=== PATIENT | female | born 1950 | race Caucasian/White ===

== ENCOUNTER 2017-02-27 06:34 | Observation (INO) | payer MEDICARE, OTHER ==
[~2017-02-27] VITALS: Ht 160 cm; Wt 78.5 kg
[2017-02-27 06:38] VITALS: Ht 160 cm; Wt 78.5 kg
[2017-02-27 09:06] LABS: BASOPHIL # 0.1 10^3/ul (0.0-0.1); BASOPHILS % 0.4 % (0.0-2.0); EOSINOPHILS % 0.3 % (0.0-7.0); HEMATOCRIT 43.3 % (37.0-47.0); HEMOGLOBIN 14.6 g/dl (12.0-16.0); LYMPHOCYTES # 2.6 10^3/ul (0.8-2.9); LYMPHOCYTES % 19.3 % (15.0-51.0); MEAN CORPUSCULAR HEMOGLOBIN 29.4 pg (29.0-33.0); MEAN CORPUSCULAR HGB CONC 33.7 g/dl (32.0-37.0); MEAN CORPUSCULAR VOLUME 87.3 fl (82.0-101.0); MEAN PLATELET VOLUME 10.6 fl (7.4-10.4); MONOCYTE # 0.7 10^3/ul (0.3-0.9); MONOCYTES % 5.1 % (0.0-11.0); NEUTROPHILS % 74.6 % (39.0-77.0); PLATELET COUNT 246 10^3/UL (140-415); RED BLOOD COUNT 4.96 10^6/ul (4.20-5.40); RED CELL DISTRIBUTION WIDTH 13.6 % (11.5-14.5); WHITE BLOOD COUNT 13.6 10^3/ul (4.8-10.8)
[2017-02-27 09:19] LABS: ADD UMIC NO; UR ASCORBIC ACID NEGATIVE (NEGATIVE); UR BILIRUBIN (Dip) NEGATIVE (NEGATIVE); UR BLOOD (Dip) NEGATIVE (NEGATIVE); UR CLARITY CLEAR (CLEAR); UR COLOR YELLOW (YELLOW); UR GLUCOSE (Dip) NEGATIVE (NEGATIVE); UR KETONES (Dip) NEGATIVE (NEGATIVE); UR LEUKOCYTE ESTERASE (Dip) NEGATIVE Leu/ul (NEGATIVE); UR NITRITE (Dip) NEGATIVE (NEGATIVE); UR SPECIFIC GRAVITY (Dip) 1.017 (1.003-1.030); UR TOTAL PROTEIN (Dip) NEGATIVE (NEGATIVE); UR UROBILINOGEN (Dip) NEGATIVE (NEGATIVE)
[2017-02-27 09:26] LABS: INR 0.85; PROTIME 11.6 Sec (12.2-14.2); PT RATIO 0.9
[2017-02-27 09:27] LABS: PARTIAL THROMBOPLASTIN TIME 25.9 Sec (25.0-35.0)
[2017-02-27 09:28] LABS: ALANINE AMINOTRANSFERASE 64 IU/L (13-69); ALBUMIN 4.8 g/dl (3.3-4.9); ALBUMIN/GLOBULIN RATIO 1.11; ALKALINE PHOSPHATASE 119 IU/L (42-121); ANION GAP 15 (8-16); ASPARTATE AMINO TRANSFERASE 64 IU/L (15-46); BILIRUBIN,INDIRECT 0.3 mg/dl (0-1.1); BILIRUBIN,TOTAL 0.3 mg/dl (0.2-1.3); BLOOD UREA NITROGEN 13 mg/dl (7-20); CALCIUM 9.8 mg/dl (8.4-10.2); CARBON DIOXIDE 32 mmol/L (21-31); CHLORIDE 99 mmol/L (97-110); GLUCOSE 153 mg/dl (70-220); POTASSIUM 3.6 mmol/L (3.5-5.1); SODIUM 142 mmol/L (135-144); TOTAL PROTEIN 9.1 g/dl (6.1-8.1)
[2017-02-27 09:38] LABS: TROPONIN-I < 0.012 ng/ml (0.00-0.12)
[2017-02-27] MEDS ORDERED: IOHEXOL 100 ML ONE (09:45)
[2017-02-27] MEDS ORDERED: SOD CHLORIDE 0.9% 100 ML ONE (09:45)
--- NOTE | 2017-02-27 10:41 | RADRPT ---
PROCEDURE: CT angiogram of the abdomen pelvis with IV contrast. CLINICAL INDICATION: 66-year-old female with epigastric pain. TECHNIQUE: CT scan of the chest and abdomen with contrast was performed on a multidetector high-re solution CT scanner following administration of 100 cc of Optiray 350. Coronal and sagittal reforma tted images were obtained from the axial source images. Images were reviewed on a high-resolution [employer] workstation. The total exam CTDI equals 17.6 mGy and the total exam DLP equals 801 mGy-cm. One or more of the following dose reduction techniques were used: - Automated exposure control. - Adjustment of the mA and/or kV according to patient size. Use of iterative reconstruction technique. COMPARISON: None available FINDINGS: CT Abdomen and pelvis : Soft tissues: Normal. Lungs: The visible portions of the lungs are mildly hyperinflated with ground-glass infiltrates. The liver, common bile duct and gallbladder: There is mild fatty infiltration of the liver which tres sured 15.6 cm AP. The hepatic and portal veins are patent. The gallbladder and gallbladder wall ar e normal. There is no evidence of cholelithiasis. The extrahepatic common bile duct is dilated tres suring 8.3 mm. Pancreas: The pancreas is normal. No pancreatic mass is noted. The main pancreatic duct is normal. Gastrointestinal: There is no evidence of a hiatal hernia. Gastric wall thickening is attributed to incomplete distension. The small bowel loops are normal. There is a midline umbilical hernia cont aining fat with rectus diastasis. There is fecal material in the cecum and ascending colon. There is scattered fecal material in the transverse, descending and rectosigmoid colon. There are small d iverticula in the descending colon without evidence of diverticulitis or appendicitis. Kidneys, bladder and adrenal glands : Normal. No obstructing ureterolith, nephrolith or bladder sto ne is identified. Spleen: Normal. Lymph nodes: Normal. Reproductive system and pelvis : The uterus is retroflexed. No abnormal adnexal mass or free fluid is noted in the pelvis. Bony elements: There are degenerative osteophytes in the thoracic and lumbar spine. There is no itzel dence of spondylolysis or spondylolisthesis. There are degenerative changes in the articular facets at L4-5 and L5-S1. Vasculature: The lower thoracic aorta is ectatic but normal in size. There are vascular calcificati ons in the abdominal aorta. The celiac artery and its branches are unremarkable. The superior mese nteric artery is normal. There are vascular calcifications in the proximal left renal artery. The right renal artery is normal. No stenosis or aneurysm is identified involving the renal arteries. The inferior mesenteric artery is unremarkable. The common iliac arteries are unremarkable. There are vascular calcifications in the left internal iliac artery. The right internal iliac artery and external iliac arteries are unremarkable. There are vascular calcifications in the distal right com mon femoral artery. The left common femoral artery is normal. The profunda femoris and superficial femoral arteries are unremarkable. IMPRESSION: 1. Atherosclerotic vascular disease with no evidence of an abdominal or lower thoracic abdominal aor tic aneurysm. No vascular stenosis is identified in the abdomen or pelvis. 2. Mild hepatomegaly with fatty infiltration of the liver. 3. Dilated extrahepatic common bile duct measuring 8.3 mm. No pancreatic mass is identified. Ther e is no evidence of choledocholithiasis. 4. Rectus diastasis with a small midline umbilical hernia. 5. Osteoarthritis of the thoracic and lumbosacral spine with bilateral degenerative facet arthropat hy at L4-5 and L5-S1. 6. Diverticulosis of the descending and sigmoid colon without evidence of diverticulitis. 7. RPTAT:AAJJ Physician Fannie Date Time Electronically viewed and signed by Physician Fannie on 02/27/2017 10:41 [email or web address]/
[2017-02-27] MEDS ORDERED: ASPIRIN 81 MG TAB PO ONE (12:00)
--- NOTE | 2017-02-27 13:11 | ERA ---
ER Documentation Chief Complaint Date/Time DATE: 02/27/17 TIME: 12:59 Chief Complaint Complains of epigastric pain, sweating and back pain at 3 am (CROW MAYORGA PA-C) HPI 66-year-old female patient with a past medical history of palpitations, diabetes , hyper tension, hypothyroidism presents to the ED complaining of epigastric pain and back pain that started at 3 AM earlier today. Reports that she was also sweating and having chills. States that the onset was sudden and constant. Reports that the pain lasted for about 3 hours and rates it a 8 out of 10. Reports that she took Tylenol 3 for her bilateral knees and states that she is unsure if this was the cause for her pain. Denies any wheezing, shortness of breath, vomiting, diarrhea dyspnea on exertion, pleuritic chest pain, orthopnea, fever, dysuria. States that she takes metformin, metoprolol, aspirin, potassium. Reports that her last stress test was 7 years ago. States that sometimes she gets palpitations. (CROW MAYORGA PA-C) ROS All systems reviewed and are negative except as per history of present illness. (CROW MAYORGA PA-C) Medications Home Meds Reported Medications Cholecalciferol (Vitamin D3) (VITAMIN D-3) 2,000 Unit Capsule, 2000 UNIT PO DAILY, CAP 02/27/17 Aspirin* (Aspirin* EC) 81 Mg Tablet.dr, 81 MG PO DAILY, TAB 02/27/17 Losartan Potassium* (Losartan Potassium*) 100 Mg Tablet, 100 MG PO DAILY, TAB 02/27/17 Amlodipine Besylate* (Amlodipine Besylate*) 10 Mg Tablet, 10 MG PO DAILY, #30 TAB 02/27/17 Metformin Hcl* (Metformin Hcl*) 500 Mg Tablet, 500 MG PO WITH BREAKFAST, #30 TAB 02/27/17 Levothyroxine Sodium* (Levothyroxine Sodium*) 100 Mcg Tablet, 100 MCG PO BEFORE BREAKFAST, #30 TAB 02/27/17 Vitamin E* (Vitamin E*) Unknown Strength Capsule, 1 CAP PO DAILY, CAP 02/27/17 Allergies Allergies: Coded Allergies: No Known Allergy (Unverified , 02/27/17) PMhx/Soc History of Surgery: Yes (C SECTION, salpingectomy) Anesthesia Reaction: No Hx Neurological Disorder: No Hx Respiratory Disorders: No Hx Cardiac Disorders: Yes (HTN , HIGH CHOLESTEROL ) Hx Psychiatric Problems: No Hx Miscellaneous Medical Probl: Yes (DM, palpitations, hypothyroid) Hx Alcohol Use: No Hx Substance Use: No Hx Tobacco Use: No Smoking Status: Never smoker (CROW MAYORGA PA-C) Physical Exam Vitals Vital Signs Date Time Temp Pulse Resp B/P Pulse Ox O2 Delivery O2 Flow Rate FiO2 02/27/17 06:38 98.3 68 20 151/76 98 (HAYDEN SANTIAGO MD) Physical Exam Const: [id number]-[id number], well-nourished. In no acute distress. Head: Atraumatic, normocephalic Eyes: Normal Conjunctiva without injection. No purulent discharge. ENT: Normal external ear, nose. Moist oropharynx without tonsillar exudates. Non -erythematous pharynx. Uvula midline. No drooling. No trismus. Neck: No cervical midline tenderness. Full range of motion. No meningismus. No cervical lymphadenopathy. No JVD. Resp: Clear to auscultation bilaterally. No wheezing, rhonchi, rales, or crackles. No accessory muscle use. No retractions. Cardio: Regular rate and rhythm. No murmurs, rubs or gallops. Abd: Soft, epigastric tenderness, non distended. Normal bowel sounds. No palpable masses. No rebound tenderness. No guarding. Negative McBurney's point. Negative psoas sign. Negative obturator sign. Skin: No petechiae or rashes Back: No midline tenderness. No CVA tenderness. Ext: No cyanosis, or edema. Neur: Awake and alert. Normal gait. Normal coordination. Psych: Normal Mood and Affect (CROW MAYORGA PA-C) Result Diagram: 02/27/17 0852 02/27/17 0852 Results 24 hrs Laboratory Tests Test 02/27/17 08:52 02/27/17 11:15 White Blood Count 13.610^3/ul Red Blood Count 4.9610^6/ul Hemoglobin 14.6g/dl Hematocrit 43.3% Mean Corpuscular Volume 87.3fl Mean Corpuscular Hemoglobin 29.4pg Mean Corpuscular Hemoglobin Concent 33.7g/dl Red Cell Distribution Width 13.6% Platelet Count 52907^3/UL Mean Platelet Volume 10.6fl Neutrophils % 74.6% Lymphocytes % 19.3% Monocytes % 5.1% Eosinophils % 0.3% Basophils % 0.4% Nucleated Red Blood Cells % 0.0/100WBC Neutrophils # (Manual) 1010^3/ul Lymphocytes # 2.610^3/ul Monocytes # 0.710^3/ul Eosinophils # 0.010^3/ul Basophils # 0.110^3/ul Nucleated Red Blood Cells # 0.010^3/ul Prothrombin Time 11.6Sec Prothrombin Time Ratio 0.9 INR International Normalized Ratio 0.85 Activated Partial Thromboplast Time 25.9Sec Urine Color YELLOW Urine Clarity CLEAR Urine pH 6.0 Urine Specific [place] 1.017 Urine Ketones NEGATIVEmg/dL Urine Nitrite NEGATIVEmg/dL Urine Bilirubin NEGATIVEmg/dL Urine Urobilinogen NEGATIVEmg/dL Urine Leukocyte Esterase NEGATIVELeu/ul Urine Hemoglobin NEGATIVEmg/dL Urine Glucose NEGATIVEmg/dL Urine Total Protein NEGATIVEmg/dl Sodium Level 142mmol/L Potassium Level 3.6mmol/L Chloride Level 99mmol/L Carbon Dioxide Level 32mmol/L Anion Gap 15 Blood Urea Nitrogen 13mg/dl Creatinine 0.60mg/dl Glucose Level 153mg/dl Calcium Level 9.8mg/dl Total Bilirubin 0.3mg/dl Direct Bilirubin 0.00mg/dl Indirect Bilirubin 0.3mg/dl Aspartate Amino Transf (AST/SGOT) 64IU/L Alanine Aminotransferase (ALT/SGPT) 64IU/L Alkaline Phosphatase 119IU/L Troponin I < 0.012ng/ml < 0.012ng/ml Total Protein 9.1g/dl Albumin 4.8g/dl Globulin 4.30g/dl Albumin/Globulin Ratio 1.11 Lipase 113U/L Current Medications Medications (Trade) Dose Ordered Sig/Ankush Route PRN Reason Start Time Stop Time Status Last Admin Dose Admin Iohexol 100 ml @ ud STK-MED ONCE .ROUTE 02/27/17 09:45 02/27/17 09:46 DC Sodium Chloride (NS) 100 ml @ ud STK-MED ONCE .ROUTE 02/27/17 09:45 02/27/17 09:46 DC Aspirin (Aspirin) 162 mg ONCE ONCE PO 02/27/17 12:00 02/27/17 12:01 DC 02/27/17 11:38 Ondansetron HCl (Zofran Inj) 4 mg ER BRIDGE PRN IV NAUSEA AND/OR VOMITING 02/27/17 13:30 02/28/17 13:29 Acetaminophen (Tylenol Tab) 650 mg ER BRIDGE PRN PO MILD PAIN/FEVER 02/27/17 13:30 02/28/17 13:29 (HAYDEN SANTIAGO MD) Procedures/MDM This is a 66-year-old female patient with a past medical history of palpitations , diabetes, hypertension, hypothyroidism presents to the ED complaining of epigastric, back pain, diaphoresis started 3 AM earlier today. Patient is afebrile and nontoxic-appearing. Patient's blood pressure is 151/76. Patient' s blood pressure was elevated (>120/80) but appears stable without evidence of hypertension emergency or urgency. The patient was counseled about the risks of hypertension and urged to pursue outpatient monitoring and therapy within a week with their primary care physician. This case was discussed with my supervising physician, Dr. Santiago who agreed with the workup. Patient was further worked up with CBC, CMP, lipase, EKG, troponin, chest x-ray, CT angiogram of the abdomen. Patient was instructed to stop Metformin for 48 hours and educated on risks of lactic acidosis and severe renal failure as she received iodinated IV contrast with the CT of angiogram of abdomen. CBC: No leukocytosis. No e/o of systemic infection. No e/o anemia. CMP: No e/o severe acidosis, alkalosis, renal failure, diabetic ketoacidosis, liver disease Lipase within normal limits. Troponin < 0.012 x 2 Urine: No leukocyte esterase, no nitrites, no hematuria. EKG reviewed and interpreted by Dr. Santiago Rate/Rhythm: [60 bpm, Normal Sinus Rhythm] No ectopy, no ST elevations, normal axis. QRS, ST, T-waves: [No changes consistent w/ acute ischemia] Impression: [No evidence of ischemia or arrhythmia] PROCEDURE: CT angiogram of the abdomen pelvis with IV contrast. CLINICAL INDICATION: 66-year-old female with epigastric pain. TECHNIQUE: CT scan of the chest and abdomen with contrast was performed on a multidetector high-resolution CT scanner following administration of 100 cc of Optiray 350. Coronal and sagittal reformatted images were obtained from the axial source images. Images were reviewed on a high-resolution PACS workstation. The total exam CTDI equals 17.6 mGy and the total exam DLP equals 801 mGy-cm. One or more of the following dose reduction techniques were used: - Automated exposure control. - Adjustment of the mA and/or kV according to patient size. Use of iterative reconstruction technique. COMPARISON: None available FINDINGS: CT Abdomen and pelvis : Soft tissues: Normal. Lungs: The visible portions of the lungs are mildly hyperinflated with ground- glass infiltrates. The liver, common bile duct and gallbladder: There is mild fatty infiltration of the liver which measured 15.6 cm AP. The hepatic and portal veins are patent. The gallbladder and gallbladder wall are normal. There is no evidence of cholelithiasis. The extrahepatic common bile duct is dilated measuring 8.3 mm. Pancreas: The pancreas is normal. No pancreatic mass is noted. The main pancreatic duct is normal. Gastrointestinal: There is no evidence of a hiatal hernia. Gastric wall thickening is attributed to incomplete distension. The small bowel loops are normal. There is a midline umbilical hernia containing fat with rectus diastasis. There is fecal material in the cecum and ascending colon. There is scattered fecal material in the transverse, descending and rectosigmoid colon. There are small diverticula in the descending colon without evidence of diverticulitis or appendicitis. Kidneys, bladder and adrenal glands : Normal. No obstructing ureterolith, nephrolith or bladder stone is identified. Spleen: Normal. Lymph nodes: Normal. Reproductive system and pelvis : The uterus is retroflexed. No abnormal adnexal mass or free fluid is noted in the pelvis. Bony elements: There are degenerative osteophytes in the thoracic and lumbar spine. There is no evidence of spondylolysis or spondylolisthesis. There are degenerative changes in the articular facets at L4-5 and L5-S1. Vasculature: The lower thoracic aorta is ectatic but normal in size. There are vascular calcifications in the abdominal aorta. The celiac artery and its branches are unremarkable. The superior mesenteric artery is normal. There are vascular calcifications in the proximal left renal artery. The right renal artery is normal. No stenosis or aneurysm is identified involving the renal arteries. The inferior mesenteric artery is unremarkable. The common iliac arteries are unremarkable. There are vascular calcifications in the left internal iliac artery. The right internal iliac artery and external iliac arteries are unremarkable. There are vascular calcifications in the distal right common femoral artery. The left common femoral artery is normal. The profunda femoris and superficial femoral arteries are unremarkable. IMPRESSION: 1. Atherosclerotic vascular disease with no evidence of an abdominal or lower thoracic abdominal aortic aneurysm. No vascular stenosis is identified in the abdomen or pelvis. 2. Mild hepatomegaly with fatty infiltration of the liver. 3. Dilated extrahepatic common bile duct measuring 8.3 mm. No pancreatic mass is identified. There is no evidence of choledocholithiasis. 4. Rectus diastasis with a small midline umbilical hernia. 5. Osteoarthritis of the thoracic and lumbosacral spine with bilateral degenerative facet arthropathy at L4-5 and L5-S1. 6. Diverticulosis of the descending and sigmoid colon without evidence of diverticulitis. Low suspicion for pneumothorax, pneumonia, cardiac tamponade, pulmonary embolism , pleural effusion, AAA, aortic dissection, Boerhaave's syndrome, cardiac dysrhythmias,meningitis, intracranial bleed, seizure, stroke, TIA or other emergent conditions. Patient has diverticulosis but no signs of diverticulitis. Dilated CBD but no evidence of choledocholithiasis. Low suspicion for gastritis, cauda equina, epidural abscess, spinal hematoma, malignancy, GERD, peptic ulcer disease, cholecystitis, cholangitis, pancreatitis , appendicitis, bowel obstruction, ileus, volvulus, nephrolithiasis, pyelonephritis, hepatitis, perforated viscus, abdominal hernia, acute abdomen, mesenteric ischemia or other emergent conditions. Patient has a heart score of 4. 162 mg chewable aspirin given to patient. This is discussed with my supervising physician, Dr. Santiago as observation was recommended. Patient stated she would like to be admitted for observation and agreed to the admission plan. Patient will now be under the care of Dr. Santiago for further evaluation and treatment as well as admission. (CROW MAYORGA PA-C) I discussed this patient with the PA who saw her. Her heart score is 4. Her symptoms are concerning for cardiac etiology. Her initial troponin and EKG were normal. Aspirin was given. There is no evidence of STEMI. However the patient is high risk for acute coronary syndrome and adverse events. I discussed admission versus discharge with close outpatient follow-up with the patient. However she would prefer to be admitted. I do think she needs a cardiac workup. I will admit her to telemetry under the hospitalist service. Dr. Olvera was made aware of the patient. (HAYDEN SANTIAGO MD) Departure Diagnosis: Primary Impression: Epigastric pain Additional Impressions: Diaphoresis Back pain Qualified Code: M54.6 - Midline thoracic back pain, unspecified chronicity Condition: Stable CROW MAYORGA PA-C Feb 27, 2017 13:11 HAYDEN SANTIAGO MD Feb 27, 2017 13:43
[2017-02-27] MEDS ORDERED: VITA400C15 PO (13:21)
[2017-02-27] MEDS ORDERED: METF500T4 PO (13:22)
[2017-02-27] MEDS ORDERED: AMLO-147 PO (13:22)
[2017-02-27] MEDS ORDERED: LEVO100T87 PO (13:22)
[2017-02-27] MEDS ORDERED: ASPI-664 PO (13:23)
[2017-02-27] MEDS ORDERED: LOSA100T7 PO (13:23)
[2017-02-27] MEDS ORDERED: CHOL200073 PO (13:24)
[2017-02-27] MEDS ORDERED: ACETAMINOPHEN 325 MG TAB PO PRN (13:30)
[2017-02-27] MEDS ORDERED: ONDANSETRON 4 MG INJ IV PRN ×2 (13:30→14:30)
[2017-02-27 14:13] VITALS: TEMP 98.3
[2017-02-27] MEDS ORDERED: MAGNESIUM HYDROXIDE 30ML CUP PO PRN (14:30)
[2017-02-27] MEDS ORDERED: DEXTROSE 50% 50 ML SYRINGE IV PRN ×2 (14:30)
[2017-02-27] MEDS ORDERED: GLUCOSE GEL 15 GRAM TUBE PO PRN ×2 (14:30)
[2017-02-27] MEDS ORDERED: NACL 0.9% 3 ML SYG IV SCH (14:30)
[2017-02-27] MEDS ORDERED: hydrALAzine 20 MG INJ IV PRN (14:30)
[2017-02-27] MEDS ORDERED: GLUCAGON 1 MG INJ IM PRN (14:30)
[2017-02-27] MEDS ORDERED: GLUCOSE GEL 15 GRAM TUBE BUCCAL PRN (14:30)
[2017-02-27] MEDS ORDERED: morphine 2 MG INJ IV PRN (14:30)
--- NOTE | 2017-02-27 14:30 | HP ---
Date/Time of Note Date/Time of Note DATE: 02/27/17 TIME: 14:23 Assessment/Plan VTE Prophylaxis VTE Prophylaxis Intervention: heparin Assessment/Plan Chief Complaint/Hosp Course Patient is a 66-year-old female with a past medical history of hypertension, dyslipidemia, diabetes mellitus who presents to [facility] for left-sided chest pain, rule out ACS Assessment and problem list Chest pain, resolving, musculoskeletal versus true ACS Back pain Fevers and chills, resolved Umbilical hernia, asymptomatic Dyslipidemia Hepatic steatosis Dilated common bile duct Rectus diastasis Osteoarthritis Diverticulosis Hypertension Dyspnea Diabetes mellitus, mild Hypothyroidism Plan -Cards has been consulted, Dr. Neal's group, Dr. Sparks on today and confirmed to have recieved consult -CT angios the abdomen and pelvis with IV contrast does not show aortic dissection. -Trend troponins -Echocardiogram -Monitor asymptomatic umbilical hernia -Likely musculoskeletal, starting Robaxin for muscle spasm -Continue home meds as able -Hold diabetes medication will start insulin for now -Pain medication as needed -Start a statin, follow-up with lipid panel and adjust dosage as needed Problems: HPI/ROS Admit Date/Time Admit Date/Time Hx of Present Illness Patient is a 66-year-old female who with past medical history of diabetes, hypertension, dyslipidemia, and hypothyroidism who presented to the ED complaining of epigastric and left-sided chest pain radiated to the back that began approximately at 3 AM. Patient states that she currently has very minimal chest pain however it is still present. Patient states that it is also worsened by touch. Patient stated that at that time she was also sweating having chills but denies shortness of breath, no vomiting, nausea, diarrhea, and fever. 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 Patient takes all her medications as indicated and through a tune up mechanic it was determined that the patient had a stress test approximately 7 years ago with no acute issues. Of note patient has a history of left shoulder tendinitis and a history of occasional palpitations. PMH: Hypertension, dyslipidemia, diabetes mellitus, hypothyroidism, osteoarthritis, diverticulosis, ectopic with one ovary removed. PSH: , single salpingo-oophorectomy Social: Denies smoking, drinking, drugs Meds: Aspirin 81 mg, losartan 100 mg daily, amlodipine 10 mg daily, metformin 500 mg at breakfast, levothyroxine 100 mcg daily, vitamin E, vitamin D. PMH/Family/Social Social History Smoking Status: Never smoker Exam/Review of Systems Vital Signs Vitals Vital Signs Date Time Temp Pulse Resp B/P Pulse Ox O2 Delivery O2 Flow Rate FiO2 02/27/17 14:13 98.3 69 12 124/73 98 Exam Exam Physical exam General: Patient is laying in bed and answers questions appropriately Mentation: Patient is alert and oriented 4, Head: Normocephalic atraumatic Eyes: EOMI, pupils reactive to light Neck: Supple, nontender, midline Respiratory: Clear to auscultation bilaterally Cardiovascular: regular rate, no obvious murmurs Gastrointestinal: non-tender to palpation, bowel sounds heard. Neurological: Moves all extremities spontaneously Skin: No new skin lesions musculoskeletal: mildly tender to palpation of L chest wall. Labs Result Diagram: 02/27/1752 02/27/17 0852 Medications Medications Current Medications Ondansetron HCl (Zofran Inj) 4 mg Q6H PRN IV NAUSEA AND/OR VOMITING; Start at 14:30; Status UNV Morphine Sulfate (morphine) 2 mg Q4H PRN IV SEVERE PAIN LEVEL 7-10; Start 02/27 at 14:30; Status UNV Magnesium Hydroxide (Milk Of Mag) 30 ml DAILY PRN PO CONSTIPATION; Start at 14:30; Status UNV Heparin Sodium (Porcine) (Heparin (5000 Units/0.5 ml)) 5,000 unit Q8 SC ; Start 02/27/17 at 22:00; Status UNV Amlodipine Besylate (Norvasc) 10 mg DAILY PO ; Start 02/28/17 at 09:00; Status UNV Aspirin (Halfprin) 81 mg DAILY PO ; Start 02/28/17 at 09:00; Status UNV Cholecalciferol (Vitamin D) 2,000 unit DAILY PO ; Start 02/28/17 at 09:00; Status UNV Losartan Potassium (Cozaar) 100 mg DAILY PO ; Start 02/28/17 at 09:00; Status UNV BAL VINES Feb 27, 2017 14:30
[2017-02-27 16:17] VITALS: BP 140/72; RESP 18
[2017-02-27 16:18] VITALS: PULSE 64
[2017-02-27] MEDS: INSULIN ASPART [NOVOLOG] 3 ML PEN SC SCH ×2 (17:54→21:00)
[2017-02-27 20:00] VITALS: BP 114/67; RESP 18
[2017-02-27 20:02] VITALS: PULSE 62
[2017-02-27] MEDS: ATORVASTATIN 20 MG TAB PO SCH (20:48)
[2017-02-27] MEDS: HEPARIN 5,000 UNIT/0.5 ML VIAL SC SCH (23:44)
[2017-02-28] VITALS (12 sets, daily range): BP systolic 110–130; BP diastolic 58–78; PULSE 55–63; RESP 18
[2017-02-28] MEDS: ACCU-CHEK XX SCH (02:00)
[2017-02-28] MEDS: HEPARIN 5,000 UNIT/0.5 ML VIAL SC SCH ×3 (06:12→21:31)
[2017-02-28] MEDS: INSULIN ASPART [NOVOLOG] 3 ML PEN SC SCH ×4 (08:00→21:00)
[2017-02-28] MEDS ORDERED: metFORMIN 500 MG TAB PO SCH (08:00)
[2017-02-28 08:14] LABS: BASOPHIL # 0.1 10^3/ul (0.0-0.1); BASOPHILS % 0.9 % (0.0-2.0); EOSINOPHILS # 0.2 10^3/ul (0.0-0.5); EOSINOPHILS % 2.6 % (0.0-7.0); HEMATOCRIT 38.1 % (37.0-47.0); HEMOGLOBIN 12.6 g/dl (12.0-16.0); LYMPHOCYTES # 2.9 10^3/ul (0.8-2.9); LYMPHOCYTES % 37.5 % (15.0-51.0); MEAN CORPUSCULAR HEMOGLOBIN 29.1 pg (29.0-33.0); MEAN CORPUSCULAR HGB CONC 33.1 g/dl (32.0-37.0); MEAN PLATELET VOLUME 10.9 fl (7.4-10.4); MONOCYTE # 0.5 10^3/ul (0.3-0.9); MONOCYTES % 6.9 % (0.0-11.0); PLATELET COUNT 204 10^3/UL (140-415); RED BLOOD COUNT 4.33 10^6/ul (4.20-5.40); RED CELL DISTRIBUTION WIDTH 14.1 % (11.5-14.5); WHITE BLOOD COUNT 7.7 10^3/ul (4.8-10.8)
[2017-02-28 08:35] LABS: ALBUMIN 3.7 g/dl (3.3-4.9); ALBUMIN/GLOBULIN RATIO 1.23; BILIRUBIN,INDIRECT 0.3 mg/dl (0-1.1); BILIRUBIN,TOTAL 0.3 mg/dl (0.2-1.3); CALCIUM 9.1 mg/dl (8.4-10.2); CHOL/HDL RATIO 3.6 RATIO; CREATININE 0.57 mg/dl (0.44-1.00); TOTAL PROTEIN 6.7 g/dl (6.1-8.1)
[2017-02-28] MEDS: LEVOTHYROXINE 100 MCG TAB PO SCH (08:35)
[2017-02-28 08:51] LABS: T3 UPTAKE 32.5 % (23.5-40.5)
[2017-02-28 09:04] LABS: THYROID STIMULATING HORMONE 1.11 MIU/L (0.465-4.680)
[2017-02-28] MEDS: CHOLECALCIFEROL 2,000 UNIT CAP PO SCH (09:08)
[2017-02-28] MEDS: AMLODIPINE 10 MG TAB PO SCH (09:13)
[2017-02-28] MEDS: ASPIRIN (EC) 81 MG TAB PO SCH (09:14)
[2017-02-28] MEDS: LOSARTAN 50 MG TAB PO SCH (09:15)
--- NOTE | 2017-02-28 14:33 | PN ---
Date/Time of Note Date/Time of Note DATE: 02/28/17 TIME: 14:27 Assessment/Plan VTE Prophylaxis VTE Prophylaxis Intervention: SCD's Lines/Catheters IV Catheter Type (from Nrsg): Saline Lock Urinary Cath still in place: No Assessment/Plan Assessment/Plan Atypical chest pain acute bronchitis Umbilical hernia, asymptomatic Dyslipidemia Fatty liver Rectus diastasis Osteoarthritis Diverticulosis Hypertension Dyspnea Diabetes mellitus, mild Hypothyroidism Plan -Cards has been consulted yesterday, Dr. Neal's group, Dr. Sparks on today and confirmed to have recieved consult -CT angios the abdomen and pelvis with IV contrast does not show aortic dissection. - trponin has been negative so far - ECHO has been ordred will wait for cardiology recommendations Change status to inpatient Subjective 24 Hr Interval Summary Free Text/Dictation still c/o chest pain, BP stable, afebrile Exam/Review of Systems Vital Signs Vitals Vital Signs Date Time Temp Pulse Resp B/P Pulse Ox O2 Delivery O2 Flow Rate FiO2 02/28/17 12:35 98.0 69 18 125/78 100 Intake and Output 02/27/17 02/27/17 02/28/17 15:00 23:00 07:00 Intake Total 650 ml Balance 650 ml Exam Constitutional: alert Psych: no complaints Head: normocephalic Eyes: nl conjunctiva ENMT: nl external ears & nose Neck: non-tender, supple Respiratory: clear to auscultation, diminished breath sounds, normal air movement Cardiovascular: nl pulses, regular rate and rhythm Gastrointestinal: non-tender, soft Musculoskeletal: nl extremities to inspection Neurological: RN CVOR II-XII intact, nl mental status, nl speech, nl strength Results Result Diagram: 02/28/17 0702/28/17 0705 Results 24 hrs Laboratory Tests Test 02/27/17 17:43 02/27/17 17:51 02/27/17 20:54 02/28/17 07:05 Troponin I < 0.012 Bedside Glucose 89 140 White Blood Count 7.7 # Red Blood Count 4.33 Hemoglobin 12.6 Hematocrit 38.1 Mean Corpuscular Volume 88.0 Mean Corpuscular Hemoglobin 29.1 Mean Corpuscular Hemoglobin Concent 33.1 Red Cell Distribution Width 14.1 Platelet Count 204 Mean Platelet Volume 10.9 H Neutrophils % 52.0 Lymphocytes % 37.5 Monocytes % 6.9 Eosinophils % 2.6 Basophils % 0.9 Nucleated Red Blood Cells % 0.0 Neutrophils # (Manual) 4 Lymphocytes # 2.9 Monocytes # 0.5 Eosinophils # 0.2 Basophils # 0.1 Nucleated Red Blood Cells # 0.0 Sodium Level 145 H Potassium Level 4.0 Chloride Level 100 Carbon Dioxide Level 32 H Anion Gap 17 H Blood Urea Nitrogen 15 Creatinine 0.57 Glucose Level 122 Hemoglobin A1c 6.6 H Calcium Level 9.1 Total Bilirubin 0.3 Direct Bilirubin 0.00 Indirect Bilirubin 0.3 Aspartate Amino Transf (AST/SGOT) 29 Alanine Aminotransferase (ALT/SGPT) 51 Alkaline Phosphatase 82 Total Protein 6.7 # Albumin 3.7 # Globulin 3.00 Albumin/Globulin Ratio 1.23 Triglycerides Level 186 H Cholesterol Level 166 LDL Cholesterol, Calculated 84 HDL Cholesterol 45 Cholesterol/HDL Ratio 3.6 Thyroid Stimulating Hormone (TSH) 1.110 Free Thyroxine Index 3.67 Thyroxine (T4) 11.3 H Triiodothyronine (T3) Uptake 32.5 Test 02/28/17 08:29 02/28/17 12:08 Bedside Glucose 134 102 Medications Medications Current Medications Ondansetron HCl (Zofran Inj) 4 mg Q6H PRN IV NAUSEA AND/OR VOMITING; Start at 14:30 Morphine Sulfate (morphine) 2 mg Q4H PRN IV SEVERE PAIN LEVEL 7-10; Start 02/27 at 14:30 Magnesium Hydroxide (Milk Of Mag) 30 ml DAILY PRN PO CONSTIPATION; Start at 14:30 Heparin Sodium (Porcine) (Heparin (5000 Units/0.5 ml)) 5,000 unit Q8 SC Last administered on 02/28/17 06:12; Admin Dose 5,000 UNIT; Start 02/27/17 at 22:00 Amlodipine Besylate (Norvasc) 10 mg DAILY PO Last administered on 02/28/17 09: 13; Admin Dose 10 MG; Start 02/28/17 at 09:00 Aspirin (Halfprin) 81 mg DAILY PO Last administered on 02/28/17 09:14; Admin Dose 81 MG; Start 02/28/17 at 09:00 Cholecalciferol (Vitamin D) 2,000 unit DAILY PO Last administered on 02/28/17 09:08; Admin Dose 2,000 UNIT; Start 02/28/17 at 09:00 Losartan Potassium (Cozaar) 100 mg DAILY PO Last administered on 02/28/17 09: 15; Admin Dose 100 MG; Start 02/28/17 at 09:00 Hydralazine HCl (Apresoline) 10 mg Q4H PRN IV SBP>160; Start 02/27/17 at 14:30 Miscellaneous Information 1 ea NOTE XX ; Start 02/27/17 at 14:30 Glucose (Glutose) 15 gm Q15M PRN PO DECREASED GLUCOSE; Start 02/27/17 at 14:30 Glucose (Glutose) 22.5 gm Q15M PRN PO DECREASED GLUCOSE; Start 02/27/17 at 14: 30 Dextrose (D50w Syringe) 25 ml Q15M PRN IV DECREASED GLUCOSE; Start 02/27/17 at 14:30 Dextrose (D50w Syringe) 50 ml Q15M PRN IV DECREASED GLUCOSE; Start 02/27/17 at 14:30 Glucagon (Glucagen) 1 mg Q15M PRN IM DECREASED GLUCOSE; Start 02/27/17 at 14:30 Glucose (Glutose) 15 gm Q15M PRN BUCCAL DECREASED GLUCOSE; Start 02/27/17 at 14 :30 Diagnostic Test (Pha) (Accu-Chek) 1 ea 02 XX ; Start 02/28/17 at 02:00 Atorvastatin Calcium (Lipitor) 20 mg HS PO Last administered on 02/27/17 20:48 ; Admin Dose 20 MG; Start 02/27/17 at 21:00 PAUL MISHRA MD Feb 28, 2017 14:32
--- NOTE | 2017-02-28 17:08 | RADRPT ---
Echocardiogram Report Patient Name: QASIM STRINGER Gender: Female Date: 1950 Study Date: 28-Feb-2017 Head Esthetician: Teri Lopez [facility] Location: 5538 Ref. Physician: BAL VINES Quality: Good Procedures: Transthoracic echocardiogram with complete 2D, M-Mode, and doppler examination. Indications: Chest Pain. 2D/M Mode Doppler Measurement Value Normal Ranges Measurement Value Normal Ranges LVIDd 2D 4.3 3.5 - 5.6 cm AV Peak Mark 1.6 m/sec LVIDs 2D 2.0 2.1 - 4.1 cm AV Peak PG 10.0 mmHg FS 2D 52.5 % LVOT Peak Mark 1.1 m/sec LVPWd 2D 1.1 0.6 - 1.1 cm LVOT Peak PG 5.0 mmHg IVSd 2D 1.1 0.6 - 1.1 cm MV E Peak Mark 0.9 m/sec IVS/LVPW 2D 1.0 MV A Peak Mark 0.9 m/sec AoR Diam 2D 2.6 2.0 - 3.7 cm MV E/A 1.0 LA/Ao 2D 1 0 - 1 MV Decel Time 183 msec EDV 2D 76.8 cm3 MV E/A 1.0 ESV 2D 8.2 cm3 TR Peak Mark 2.0 m/sec LA Dimen 2D 3.6 2.3 - 4.0 cm TR Peak PG 17.0 mmHg RVSP 20.0 mmHg Findings Left Ventricle: Normal left ventricular systolic function. Normal left ventricular cavity size. Mild concentric left ventricular hypertrophy. Ejection fraction is visually estimated at 65 %. Tissue Doppler/Mitral Doppler indices are consistent with impaired relaxation (Stage I diastolic dysfunction). Right Ventricle: Normal right ventricular size. Normal right ventricular systolic function. Left Atrium: The left atrium is normal in size. Right Atrium: The right atrium is normal in size. Mitral Valve: Mitral valve leaflets appear mildly thickened. Mild mitral annular calcification. Trace mitral regurgitation. Aortic Valve: Normal appearance of the aortic valve. No significant aortic stenosis or insufficiency. Tricuspid Valve: Normal appearance of the tricuspid valve. Estimated peak PA systolic pressure 20 mmHg. There is trace tricuspid regurgitation. Pulmonic Valve: Normal pulmonic valve appearance. Pericardium: Normal pericardium with no significant pericardial effusion. Aorta: Normal aortic root. IVC: Normal size and normal respiratory collapse consistent with normal right atrial pressure. Conclusions 1.Normal left ventricular systolic function. Normal left ventricular cavity size. Mild concentric left ventricular hypertrophy. Ejection fraction is visually estimated at 65 %. Tissue Doppler/Mitral Doppler indices are consistent with impaired relaxation (Stage I diastolic dysfunction). 2.Mitral valve leaflets appear mildly thickened. Mild mitral annular calcification. Trace mitral regurgitation. 3.Normal appearance of the aortic valve. No significant aortic stenosis or insufficiency. 4.Normal appearance of the tricuspid valve. Estimated peak PA systolic pressure 20 mmHg. There is trace tricuspid regurgitation. Electronically Signed By: Kodi Means 28-Feb-2017 17:07:46 -0700 Patient Name: QASMI STRINGER Study Date: 28-Feb-2017 [id number]
--- NOTE | 2017-02-28 18:18 | CONS ---
Date/Time of Note Date/Time of Note DATE: 02/28/17 TIME: 18:15 Assessment/Plan Assessment/Plan Chief Complaint/Hosp Course 1) Atypical chest pain 2) HLP 3) EKG abnormalities 4) Preserved LV function Problems: Additional Assessment/Plan will order Lexiscan stress test dw family and pat Consultation Date/Type/Reason Admit Date/Time Date of Consultation: Feb 28, 2017 Type of Consultation: cv Reason for Consultation chest pain admitted with chest pain, mid chest, not radiating, worse with touch, worse with turning to the left side, present since 2 days Constitutional: no complaints ENT: no complaints Respiratory: no complaints Cardiovascular: no complaints Gastrointestinal: no complaints Musculoskeletal: no complaints Skin: no complaints Neurologic: no complaints Psychological: no complaints Past Medical History Medical History: high cholesterol, hypertension Family History Significant Family History: hypertension Social History Alcohol Use: none Smoking Status: Never smoker Drug Use: none Exam/Review of Systems Vital Signs Vitals Vital Signs Date Time Temp Pulse Resp B/P Pulse Ox O2 Delivery O2 Flow Rate FiO2 02/28/17 16:19 98.0 61 18 110/62 96 Intake and Output 02/27/17 02/27/17 02/28/17 15:00 23:00 07:00 Intake Total 650 ml Balance 650 ml Exam Constitutional: alert, oriented Head: atraumatic, normocephalic Neck: supple Respiratory: clear to auscultation Cardiovascular: regular rate and rhythm Gastrointestinal: soft Musculoskeletal: nl extremities to inspection Extremities: normal pulses Neurological: BOILERMAKER SHIP II-XII intact Results Result Diagram: 02/28/17 0705 02/28/17 0705 Results 24 hrs Laboratory Tests Test 02/27/17 20:54 02/28/17 07:05 02/28/17 08:29 02/28/17 12:08 Bedside Glucose 140 134 102 White Blood Count 7.7 # Red Blood Count 4.33 Hemoglobin 12.6 Hematocrit 38.1 Mean Corpuscular Volume 88.0 Mean Corpuscular Hemoglobin 29.1 Mean Corpuscular Hemoglobin Concent 33.1 Red Cell Distribution Width 14.1 Platelet Count 204 Mean Platelet Volume 10.9 H Neutrophils % 52.0 Lymphocytes % 37.5 Monocytes % 6.9 Eosinophils % 2.6 Basophils % 0.9 Nucleated Red Blood Cells % 0.0 Neutrophils # (Manual) 4 Lymphocytes # 2.9 Monocytes # 0.5 Eosinophils # 0.2 Basophils # 0.1 Nucleated Red Blood Cells # 0.0 Sodium Level 145 H Potassium Level 4.0 Chloride Level 100 Carbon Dioxide Level 32 H Anion Gap 17 H Blood Urea Nitrogen 15 Creatinine 0.57 Glucose Level 122 Hemoglobin A1c 6.6 H Calcium Level 9.1 Total Bilirubin 0.3 Direct Bilirubin 0.00 Indirect Bilirubin 0.3 Aspartate Amino Transf (AST/SGOT) 29 Alanine Aminotransferase (ALT/SGPT) 51 Alkaline Phosphatase 82 Total Protein 6.7 # Albumin 3.7 # Globulin 3.00 Albumin/Globulin Ratio 1.23 Triglycerides Level 186 H Cholesterol Level 166 LDL Cholesterol, Calculated 84 HDL Cholesterol 45 Cholesterol/HDL Ratio 3.6 Thyroid Stimulating Hormone (TSH) 1.110 Free Thyroxine Index 3.67 Thyroxine (T4) 11.3 H Triiodothyronine (T3) Uptake 32.5 Test 02/28/17 17:07 Bedside Glucose 120 Medications Medications Current Medications Ondansetron HCl (Zofran Inj) 4 mg Q6H PRN IV NAUSEA AND/OR VOMITING; Start at 14:30 Morphine Sulfate (morphine) 2 mg Q4H PRN IV SEVERE PAIN LEVEL 7-10; Start 02/27 at 14:30 Magnesium Hydroxide (Milk Of Mag) 30 ml DAILY PRN PO CONSTIPATION; Start at 14:30 Heparin Sodium (Porcine) (Heparin (5000 Units/0.5 ml)) 5,000 unit Q8 SC Last administered on 02/28/17 15:00; Admin Dose 5,000 UNIT; Start 02/27/17 at 22:00 Amlodipine Besylate (Norvasc) 10 mg DAILY PO Last administered on 02/28/17 09: 13; Admin Dose 10 MG; Start 02/28/17 at 09:00 Aspirin (Halfprin) 81 mg DAILY PO Last administered on 02/28/17 09:14; Admin Dose 81 MG; Start 02/28/17 at 09:00 Cholecalciferol (Vitamin D) 2,000 unit DAILY PO Last administered on 02/28/17 09:08; Admin Dose 2,000 UNIT; Start 02/28/17 at 09:00 Losartan Potassium (Cozaar) 100 mg DAILY PO Last administered on 02/28/17 09: 15; Admin Dose 100 MG; Start 8/21/17 at 09:00 Hydralazine HCl (Apresoline) 10 mg Q4H PRN IV SBP>160; Start 02/27/17 at 14:30 Miscellaneous Information 1 ea NOTE XX ; Start 02/27/17 at 14:30 Glucose (Glutose) 15 gm Q15M PRN PO DECREASED GLUCOSE; Start 02/27/17 at 14:30 Glucose (Glutose) 22.5 gm Q15M PRN PO DECREASED GLUCOSE; Start 02/27/17 at 14: 30 Dextrose (D50w Syringe) 25 ml Q15M PRN IV DECREASED GLUCOSE; Start 02/27/17 at 14:30 Dextrose (D50w Syringe) 50 ml Q15M PRN IV DECREASED GLUCOSE; Start 02/27/17 at 14:30 Glucagon (Glucagen) 1 mg Q15M PRN IM DECREASED GLUCOSE; Start 02/27/17 at 14:30 Glucose (Glutose) 15 gm Q15M PRN BUCCAL DECREASED GLUCOSE; Start 02/27/17 at 14 :30 Diagnostic Test (Pha) (Accu-Chek) 1 ea 02 XX ; Start 02/28/17 at 02:00 Atorvastatin Calcium (Lipitor) 20 mg HS PO Last administered on 02/27/17t 20:48 ; Admin Dose 20 MG; Start 02/27/17 at 21:00 Procedures Procedures EKG: Jimmy ORTEGA LEON I. MD Feb 28, 2017 18:18
[2017-02-28] MEDS: ATORVASTATIN 20 MG TAB PO SCH (21:24)
[2017-03-01] VITALS (7 sets, daily range): BP systolic 111–130; BP diastolic 62–76; PULSE 52–63; RESP 17–18
[2017-03-01] MEDS: ACCU-CHEK XX SCH (02:00)
[2017-03-01] MEDS: LEVOTHYROXINE 100 MCG TAB PO SCH (05:19)
[2017-03-01] MEDS: HEPARIN 5,000 UNIT/0.5 ML VIAL SC SCH ×2 (05:25→14:13)
--- NOTE | 2017-03-01 07:45 | CONS ---
Date/Time of Note Date/Time of Note DATE: 03/01/17 TIME: 07:44 Assessment/Plan Assessment/Plan Chief Complaint/Hosp Course 1) Atypical chest pain 2) HLP 3) EKG abnormalities 4) Preserved LV function Problems: Additional Assessment/Plan 1) continue current meds 2) stress test pending Consultation Date/Type/Reason Admit Date/Time Feb 28, 2017 at 14:29 Initial Consult Date 02/28/17 Type of Consultation: cv 24 HR Interval Summary Free Text/Dictation no chest pain, no sob, no palpitations Detailed Summary Respiratory: no complaints Cardiovascular: no complaints Genitourinary: no complaints Musculoskeletal: no complaints Neurologic: no complaints Exam/Review of Systems Vital Signs Vitals Vital Signs Date Time Temp Pulse Resp B/P Pulse Ox O2 Delivery O2 Flow Rate FiO2 03/01/17 04:02 52 03/01/17 04:00 98.2 18 124/67 96 Intake and Output 02/28/17 02/28/17 03/01/17 15:00 23:00 07:00 Intake Total 1000 ml 300 ml Balance 1000 ml 300 ml Exam Constitutional: alert, oriented Head: atraumatic, normocephalic Neck: supple Respiratory: clear to auscultation Cardiovascular: regular rate and rhythm Gastrointestinal: soft Musculoskeletal: nl extremities to inspection Extremities: normal pulses Neurological: BRICK SETTER II-XII intact Results Result Diagram: 02/28/17 0702/28/17 0705 Results 24 hrs Laboratory Tests Test 02/28/17 08:29 02/28/17 12:08 02/28/17 17:07 02/28/17 21:25 Bedside Glucose 134 102 120 114 Medications Medications Current Medications Ondansetron HCl (Zofran Inj) 4 mg Q6H PRN IV NAUSEA AND/OR VOMITING; Start at 14:30 Morphine Sulfate (morphine) 2 mg Q4H PRN IV SEVERE PAIN LEVEL 7-10; Start 02/27 at 14:30 Magnesium Hydroxide (Milk Of Mag) 30 ml DAILY PRN PO CONSTIPATION; Start at 14:30 Heparin Sodium (Porcine) (Heparin (5000 Units/0.5 ml)) 5,000 unit Q8 SC Last administered on 03/01/17t 05:25; Admin Dose 5,000 UNIT; Start 02/27/17 at 22:00 Amlodipine Besylate (Norvasc) 10 mg DAILY PO Last administered on 02/28/17 09: 13; Admin Dose 10 MG; Start 02/28/17 at 09:00 Aspirin (Halfprin) 81 mg DAILY PO Last administered on 02/28/17 09:14; Admin Dose 81 MG; Start 02/28/17 at 09:00 Cholecalciferol (Vitamin D) 2,000 unit DAILY PO Last administered on 02/28/17 09:08; Admin Dose 2,000 UNIT; Start 02/28/17 at 09:00 Losartan Potassium (Cozaar) 100 mg DAILY PO Last administered on 02/28/17 09: 15; Admin Dose 100 MG; Start 02/28/17 at 09:00 Hydralazine HCl (Apresoline) 10 mg Q4H PRN IV SBP>160; Start 02/27/17 at 14:30 Miscellaneous Information 1 ea NOTE XX ; Start 02/27/17 at 14:30 Glucose (Glutose) 15 gm Q15M PRN PO DECREASED GLUCOSE; Start 02/27/17 at 14:30 Glucose (Glutose) 22.5 gm Q15M PRN PO DECREASED GLUCOSE; Start 02/27/17 at 14: 30 Dextrose (D50w Syringe) 25 ml Q15M PRN IV DECREASED GLUCOSE; Start 02/27/17 at 14:30 Dextrose (D50w Syringe) 50 ml Q15M PRN IV DECREASED GLUCOSE; Start 02/27/17 at 14:30 Glucagon (Glucagen) 1 mg Q15M PRN IM DECREASED GLUCOSE; Start 02/27/17 at 14:30 Glucose (Glutose) 15 gm Q15M PRN BUCCAL DECREASED GLUCOSE; Start 02/27/17 at 14 :30 Diagnostic Test (Pha) (Accu-Chek) 1 ea 02 XX ; Start 02/28/17 at 02:00 Atorvastatin Calcium (Lipitor) 20 mg HS PO Last administered on 02/28/17 21:24 ; Admin Dose 20 MG; Start 02/27/17 at 21:00 ZANDRA ODONNELL MD Mar 01, 2017 07:45
[2017-03-01] MEDS: INSULIN ASPART [NOVOLOG] 3 ML PEN SC SCH ×2 (08:00→11:41)
[2017-03-01] MEDS: CHOLECALCIFEROL 2,000 UNIT CAP PO SCH (08:16)
[2017-03-01] MEDS: ASPIRIN (EC) 81 MG TAB PO SCH (08:16)
[2017-03-01] MEDS: LOSARTAN 50 MG TAB PO SCH (08:17)
[2017-03-01] MEDS: AMLODIPINE 10 MG TAB PO SCH (08:17)
[2017-03-01] MEDS ORDERED: REGADENOSON 0.4 MG/5 ML SYG ONE (12:15)
--- NOTE | 2017-03-01 14:37 | RADRPT ---
PROCEDURE: Lexiscan myocardial perfusion study CLINICAL INDICATION: 66 -year-old patient complaining of chest pain. TECHNIQUE: Lexiscan 0.4 mg intravenously separate acquisition gated myocardial perfusion SPECT usi ng Tc 99m Myoview 30.0 mCi intravenously at stress and Tc-99m Myoview, 10.0 mCi intravenously at res t was performed using the rest/stress sequence. Poststress Myoview SPECT images were obtained in th e supine position. COMPARISON: No prior studies. FINDINGS: Perfusion images reveal no evidence of perfusion defects. Lexiscan post stress gated SPECT images demonstrate no wall motion abnormalities. IMPRESSION: 1. Normal study with no evidence of perfusion defects or wall motion abnormalities. 2. The left ventricle ejection fraction at stress is greater than 70%. A call report was made to Dr. Esquivel at 02:36 p.m. on March 01, 2017. RPTAT: HH .Catie Weir MD, MD Date Time Electronically viewed and signed by .Catie Weir MD, on 03/01/2017 14:37 .L/
--- NOTE | 2017-03-01 15:03 | PDOCDIS ---
Discharge Instructions CONDITION Patient Condition: Good HOME CARE INSTRUCTIONS: Special Diet: Cardiac FOLLOW UP/APPOINTMENTS Follow-up Plan Follow up with your primary doctor in the coming week or two You have had a normal stress test making cardiac disease unlikely. However, it is very important you continue to take your medicaitons to control your blood pressure, diabetes, and cholesterol levels Return to medical care if you have any concerning symptoms BRITNEY ORTEGA MD Mar 01, 2017 15:03
--- NOTE | 2017-03-01 15:06 | DS ---
Date/Time of Note Date/Time of Note DATE: 03/01/17 TIME: 15:05 Discharge Summary Admission/Discharge Info Admit Date/Time Feb 28, 2017 at 14:29 Discharge Date/Time Patient Condition: Good Hx of Present Illness Patient is a 66-year-old female who with past medical history of diabetes, hypertension, dyslipidemia, and hypothyroidism who presented to the ED complaining of epigastric and left-sided chest pain radiated to the back that began approximately at 3 AM. Patient states that she currently has very minimal chest pain however it is still present. Patient states that it is also worsened by touch. Patient stated that at that time she was also sweating having chills but denies shortness of breath, no vomiting, nausea, diarrhea, and fever. Patient follows up with her primary care doctor on a normal basis, however does not have a topographical field assistant and she never had any cardiac issues. Patient takes all her medications as indicated and through a hospitality recruiter it was determined that the patient had a stress test approximately 7 years ago with no acute issues. Of note patient has a history of left shoulder tendinitis and a history of occasional palpitations. PMH: Hypertension, dyslipidemia, diabetes mellitus, hypothyroidism, osteoarthritis, diverticulosis, ectopic with one ovary removed. PSH: , single salpingo-oophorectomy Social: Denies smoking, drinking, drugs Meds: Aspirin 81 mg, losartan 100 mg daily, amlodipine 10 mg daily, metformin 500 mg at breakfast, levothyroxine 100 mcg daily, vitamin E, vitamin D. Hospital Course Patient was ruled out for acute TN with serial biomarkers and EKG She underwent NST which showed normal LVEF, normal wall motion and no evidence of ischemia She likely had musculoskeletal chest pain She was discharged with medications for HLD, DM and HTN and was encouraged to follow up with her primary doctor for further residential Meds Reported Medications Cholecalciferol (Vitamin D3) (VITAMIN D-3) 2,000 Unit Capsule, 2000 UNIT PO DAILY, CAP 02/27/17 Aspirin* (Aspirin* EC) 81 Mg Tablet.dr, 81 MG PO DAILY, TAB 02/27/17 Losartan Potassium* (Losartan Potassium*) 100 Mg Tablet, 100 MG PO DAILY, TAB 02/27/17 Amlodipine Besylate* (Amlodipine Besylate*) 10 Mg Tablet, 10 MG PO DAILY, #30 TAB 02/27/17 Metformin Hcl* (Metformin Hcl*) 500 Mg Tablet, 500 MG PO WITH BREAKFAST, #30 TAB 02/27/17 Levothyroxine Sodium* (Levothyroxine Sodium*) 100 Mcg Tablet, 100 MCG PO BEFORE BREAKFAST, #30 TAB 02/27/17 Vitamin E* (Vitamin E*) Unknown Strength Capsule, 1 CAP PO DAILY, CAP 02/27/17 Primary Care Provider Care Physician No Primary Pending Labs Laboratory Tests Test 02/28/17 17:07 02/28/17 21:25 03/01/17 07:46 03/01/17 11:31 Bedside Glucose 120mg/dL (70-220) 114mg/dL (70-220) 135mg/dL (70-220) 109mg/dL (70-220) BRITNEY ORTEGA MD Mar 01, 2017 15:06
--- NOTE | 2017-03-02 02:56 | CARRPT ---
DATE OF PROCEDURE: 03/01/2017 INDICATIONS: The patient is a 56-year-old female with chest pain. FINDINGS: 1. EKG with normal sinus rhythm. 2. . 3. No EKG changes consistent with ischemia. 4. No arrhythmias. 5. Imaging results are pending. Dictated By: Anahy Daley MD /valerie/willard /Document#: [id number]
== END 2017-03-01 16:29 | disposition home or self-care (01) ==
LOC: FTE 06:34 → MS4 13:24 → INTOOBSV 02-28 14:29 → OBSVTOIN 02-28 14:29
PROVIDERS: ADMIT Internal Medicine; ATTEND Internal Medicine
DX: R07.89 Other chest pain (principal); J20.9 Acute bronchitis, unspecified; K42.9 Umbilical hernia without obstruction or gangrene; K76.0 Fatty (change of) liver, not elsewhere classified; K57.90 Diverticulosis of intestine, part unspecified, without perforation or abscess without bleeding; R06.00 Dyspnea, unspecified; E11.9 Type 2 diabetes mellitus without complications; I10 Essential (primary) hypertension; E03.9 Hypothyroidism, unspecified; E78.00 Pure hypercholesterolemia, unspecified; E78.5 Hyperlipidemia, unspecified; M19.90 Unspecified osteoarthritis, unspecified site; Z79.82 Long term (current) use of aspirin; Z79.84 Long term (current) use of oral hypoglycemic drugs
CPT/HCPCS: 36415; 75635; 78452; 80053; 80061; 81003; 82962; 83036; 83690; 84436; 84443; 84479; 84484; 85025; 85610; 85730; 93005; 93017; 93306; 97162; 99285; A9500; A9505; G0378; J1644; J1815; J2785; Q9967